=== PATIENT | male | born 1930 | race Caucasian/White ===

== ENCOUNTER → 2016-06-07 | Outpatient (CLI) | payer OTHER ==
[~2016-06-07] MED LIST: ALENDRONATE SOD70 MG PO; AMBIEN10 MG PO; AUGMENTIN 875-1 EACH PO; BRINTELLIX5 MG PO; CILOSTAZOL50 MG PO; CIPRO500 MG PO; CLEOCIN HCL300 MG PO; CYANOCOBAL1000 MCG/1 INJ; DIAPER RASH57 GM TP; DULCOLAX10 MG PR; ENULOSE10 GM/15 M PO; IBANDRONATE SO150 MG PO; LEVAQUIN750 MG PO; LINZESS145 MCG PO; LORCET HD 10-31 EACH PO; MIRALAX17 GM PO; MULTIVITAMINS1 EAC1 PO; NEURONTIN 300300 MG PO; PRESERVISION A1 EAC2 PO; PROSCAR5 MG PO; PROTONIX40 MG PO; SENNA8.6 MG PO; TRINTELLIX PO; VITAMIN C 500500 MG PO; VITAMIN D 11000 UNIT PO
[2016-06-07 13:52] LABS: HEMOGLOBIN 14.5 gm/dl (14.0-17.5); RED BLOOD COUNT 4.48 M/UL (4.20-5.50)
[2016-06-07 14:17] LABS: BUN/CREATININE RATIO 30 (0-10)
== END ==
LOC: OPSV 11:47 → LAB 11:47
PROVIDERS: Emergency Medicine
DX: E78.2 Mixed hyperlipidemia (principal); G47.09 Other insomnia; G89.4 Chronic pain syndrome; I10 Essential (primary) hypertension; I70.361 Atherosclerosis of unspecified type of bypass graft(s) of the extremities with gangrene, right leg; I73.89 Other specified peripheral vascular diseases; K21.9 Gastro-esophageal reflux disease without esophagitis; J43.9 Emphysema, unspecified; L03.031 Cellulitis of right toe; M51.36 Other intervertebral disc degeneration, lumbar region; N18.3 Chronic kidney disease, stage 3 (moderate)
CPT/HCPCS: 36415; 71020; 80053; 85027; 93005

== ENCOUNTER → 2016-06-08 | Outpatient (CLI) | payer OTHER | LOC: CT 14:51 | DX: R00.0 Tachycardia, unspecified (principal); R79.89 Other specified abnormal findings of blood chemistry; Z79.82 Long term (current) use of aspirin; Z79.899 Other long term (current) drug therapy; J84.9 Interstitial pulmonary disease, unspecified | CPT/HCPCS: J7050; Q9963 ==

== ENCOUNTER → 2016-06-08 | Outpatient (CLI) | payer OTHER | LOC: LAB 10:32 | DX: E78.2 Mixed hyperlipidemia (principal); G47.09 Other insomnia; G89.4 Chronic pain syndrome; I10 Essential (primary) hypertension; I73.89 Other specified peripheral vascular diseases; K21.9 Gastro-esophageal reflux disease without esophagitis; L03.031 Cellulitis of right toe; M51.36 Other intervertebral disc degeneration, lumbar region; M79.674 Pain in right toe(s); M80.08XD Age-related osteoporosis with current pathological fracture, vertebra(e), subsequent encounter for fracture with routine healing; N18.2 Chronic kidney disease, stage 2 (mild); N18.3 Chronic kidney disease, stage 3 (moderate); N30.01 Acute cystitis with hematuria; R00.0 Tachycardia, unspecified; R10.32 Left lower quadrant pain; R25.2 Cramp and spasm; R31.0 Gross hematuria; R60.0 Localized edema | CPT/HCPCS: 36592; 85379 ==

== ENCOUNTER → 2016-06-13 | Outpatient (CLI) | payer OTHER | LOC: OPSV 13:00 | DX: M86.9 Osteomyelitis, unspecified (principal); S91.301A Unspecified open wound, right foot, initial encounter; R94.4 Abnormal results of kidney function studies | CPT/HCPCS: G0463 ==

== ENCOUNTER → 2016-06-14 | Outpatient (CLI) | payer OTHER ==
[2016-06-14 10:56] LABS: BUN/CREATININE RATIO 21 (0-10)
== END ==
LOC: LAB 10:04
PROVIDERS: Emergency Medicine
DX: I12.9 Hypertensive chronic kidney disease with stage 1 through stage 4 chronic kidney disease, or unspecified chronic kidney disease (principal); N18.3 Chronic kidney disease, stage 3 (moderate); E78.2 Mixed hyperlipidemia; G47.09 Other insomnia; G89.4 Chronic pain syndrome; I70.361 Atherosclerosis of unspecified type of bypass graft(s) of the extremities with gangrene, right leg; I73.89 Other specified peripheral vascular diseases; K21.9 Gastro-esophageal reflux disease without esophagitis; L03.031 Cellulitis of right toe; M51.36 Other intervertebral disc degeneration, lumbar region; M54.5 Low back pain; M79.674 Pain in right toe(s); N30.01 Acute cystitis with hematuria; R10.32 Left lower quadrant pain; R31.0 Gross hematuria; R60.0 Localized edema
CPT/HCPCS: 36592; 80048; 80053; 80074

== ENCOUNTER → 2016-06-15 | Outpatient (CLI) | payer OTHER | LOC: KOH-I 11:00 | DX: R74.0 Nonspecific elevation of levels of transaminase and lactic acid dehydrogenase [LDH] (principal); K80.20 Calculus of gallbladder without cholecystitis without obstruction | CPT/HCPCS: 76705 ==

== ENCOUNTER 2016-07-21 12:17 | Inpatient (IN) | payer OTHER ==
[~2016-07-21] VITALS: Ht 177.8 cm; Wt 83.9 kg
[2016-07-21] MEDS ORDERED: CYANOCOBAL1000 MCG/1 INJ (14:54)
[2016-07-21] MEDS ORDERED: LORCET HD 10-31 EACH PO (14:54)
[2016-07-21] MEDS ORDERED: CILOSTAZOL50 MG PO (14:55)
[2016-07-21] MEDS ORDERED: LEVAQUIN750 MG PO (14:55)
[2016-07-21] MEDS ORDERED: SENNA8.6 MG PO (14:57)
[2016-07-21] MEDS ORDERED: ALENDRONATE SOD70 MG PO (14:57)
[2016-07-21] MEDS ORDERED: NEURONTIN 300300 MG PO (14:57)
[2016-07-21] MEDS ORDERED: AUGMENTIN 875-1 EACH PO (14:57)
[2016-07-21] MEDS ORDERED: PROSCAR5 MG PO (14:57)
[2016-07-21] MEDS ORDERED: PROTONIX40 MG PO (14:58)
[2016-07-21] MEDS ORDERED: VITAMIN D 11000 UNIT PO (14:59)
[2016-07-21] MEDS ORDERED: AMBIEN10 MG PO (14:59)
[2016-07-21] MEDS ORDERED: BRINTELLIX5 MG PO (15:01)
[2016-07-21] MEDS ORDERED: PRESERVISION A1 EAC2 PO (15:01)
[2016-07-21 17:11] LABS: BUN/CREATININE RATIO 14 (0-10)
[2016-07-21 17:12] LABS: HEMOGLOBIN 14.3 gm/dl (14.0-17.5); RED BLOOD COUNT 4.31 M/UL (4.20-5.50); WHITE BLOOD COUNT 7.7 K/UL (4.5-11.0)
[2016-07-22 05:13] LABS: HEMOGLOBIN 13.1 gm/dl (14.0-17.5); RED BLOOD COUNT 3.95 M/UL (4.20-5.50); WHITE BLOOD COUNT 7.2 K/UL (4.5-11.0)
[2016-07-22 05:33] LABS: BUN/CREATININE RATIO 19 (0-10)
[2016-07-23 04:37] LABS: HEMOGLOBIN 13.3 gm/dl (14.0-17.5); RED BLOOD COUNT 4.06 M/UL (4.20-5.50); WHITE BLOOD COUNT 7.9 K/UL (4.5-11.0)
[2016-07-23 04:56] LABS: BUN/CREATININE RATIO 18 (0-10)
[2016-07-24 06:50] LABS: HEMOGLOBIN 13.2 gm/dl (14.0-17.5); RED BLOOD COUNT 4.07 M/UL (4.20-5.50); WHITE BLOOD COUNT 6.1 K/UL (4.5-11.0)
[2016-07-24 07:04] LABS: BUN/CREATININE RATIO 22 (0-10)
[2016-07-25 06:19] LABS: HEMOGLOBIN 14.7 gm/dl (14.0-17.5); RED BLOOD COUNT 4.47 M/UL (4.20-5.50)
[2016-07-25 06:20] LABS: WHITE BLOOD COUNT 8.1 K/UL (4.5-11.0)
[2016-07-25 06:40] LABS: BUN/CREATININE RATIO 15 (0-10)
[2016-07-28 04:44] LABS: HEMOGLOBIN 13.5 gm/dl (14.0-17.5); RED BLOOD COUNT 4.17 M/UL (4.20-5.50); WHITE BLOOD COUNT 7.3 K/UL (4.5-11.0)
[2016-07-28 05:26] LABS: BUN/CREATININE RATIO 22 (0-10)
[2016-07-30 05:25] LABS: RED BLOOD COUNT 4.27 M/UL (4.20-5.50)
[2016-07-30 05:53] LABS: BUN/CREATININE RATIO 18 (0-10)
[2016-07-31 05:02] LABS: HEMOGLOBIN 13.8 gm/dl (14.0-17.5); RED BLOOD COUNT 4.24 M/UL (4.20-5.50); WHITE BLOOD COUNT 8.2 K/UL (4.5-11.0)
[2016-07-31 05:22] LABS: BUN/CREATININE RATIO 23 (0-10)
[2016-08-01 09:30] LABS: BUN/CREATININE RATIO 20 (0-10)
[2016-08-02 04:42] LABS: HEMOGLOBIN 13.2 gm/dl (14.0-17.5); RED BLOOD COUNT 4.02 M/UL (4.20-5.50)
[2016-08-02 04:44] LABS: WHITE BLOOD COUNT 10.5 K/UL (4.5-11.0)
[2016-08-02 05:03] LABS: BUN/CREATININE RATIO 18 (0-10)
[2016-08-03 09:21] LABS: HEMOGLOBIN 14.5 gm/dl (14.0-17.5); RED BLOOD COUNT 4.39 M/UL (4.20-5.50)
[2016-08-03 09:32] LABS: BUN/CREATININE RATIO 22 (0-10)
[2016-08-03 09:38] LABS: WHITE BLOOD COUNT 14.4 K/UL (4.5-11.0)
[2016-08-04 07:41] LABS: BUN/CREATININE RATIO 16 (0-10)
[2016-08-05 05:31] LABS: BUN/CREATININE RATIO 20 (0-10)
[2016-10-06] MEDS ORDERED: CLEOCIN HCL300 MG PO (20:19)
[2016-10-06] MEDS ORDERED: VITAMIN C 500500 MG PO (20:20)
[2016-10-06] MEDS ORDERED: CIPRO500 MG PO (20:20)
[2016-10-06] MEDS ORDERED: BRINTELLIX5 MG PO (20:24)
[2016-11-01] MEDS ORDERED: LINZESS145 MCG PO (19:54)
[2016-11-01] MEDS ORDERED: MIRALAX17 GM PO (19:55)
[2016-11-01] MEDS ORDERED: MULTIVITAMINS1 EAC1 PO (19:56)
[2016-11-01] MEDS ORDERED: ENULOSE10 GM/15 M PO (19:56)
[2016-11-01] MEDS ORDERED: DULCOLAX10 MG PR (19:57)
[2016-11-01] MEDS ORDERED: IBANDRONATE SO150 MG PO (19:59)
[2016-11-01] MEDS ORDERED: DIAPER RASH57 GM TP (20:00)
[2016-11-02] MEDS ORDERED: TRINTELLIX PO (12:48)
== END 2016-08-05 17:32 | DRG 477 ==
LOC: MED SURG 4 12:58
PROVIDERS: Family Medicine; Internal Medicine Infectious Disease; Podiatrist Foot & Ankle Surgery; ADMIT Emergency Medicine
PROC: B41D1ZZ Fluoroscopy of Aorta and Bilateral Lower Extremity Arteries using Low Osmolar Contrast (ICD-10-PCS; 2016-07-22)
PROC: 0Y6P0Z1 Detachment at Right 1st Toe, High, Open Approach (ICD-10-PCS; 2016-07-23)
PROC: 0JRQ0KZ Replacement of Right Foot Subcutaneous Tissue and Fascia with Nonautologous Tissue Substitute, Open Approach (ICD-10-PCS; 2016-07-23)
PROC: 0QBQ0ZZ Excision of Right Toe Phalanx, Open Approach (ICD-10-PCS; 2016-07-23)
PROC: 0QBQ0ZZ Excision of Right Toe Phalanx, Open Approach (ICD-10-PCS; 2016-07-23)
PROC: 0QBQ0ZX Excision of Right Toe Phalanx, Open Approach, Diagnostic (ICD-10-PCS; principal; 2016-07-23 09:45)
DX: M86.671 Other chronic osteomyelitis, right ankle and foot (principal); G92 Toxic encephalopathy; I70.3 Atherosclerosis of unspecified type of bypass graft(s) of the extremities; L97.419 Non-pressure chronic ulcer of right heel and midfoot with unspecified severity; I70.92 Chronic total occlusion of artery of the extremities; J98.11 Atelectasis; L03.031 Cellulitis of right toe; B95.7 Other staphylococcus as the cause of diseases classified elsewhere; I12.9 Hypertensive chronic kidney disease with stage 1 through stage 4 chronic kidney disease, or unspecified chronic kidney disease; N18.3 Chronic kidney disease, stage 3 (moderate); I25.10 Atherosclerotic heart disease of native coronary artery without angina pectoris; D64.9 Anemia, unspecified; R07.9 Chest pain, unspecified; E78.5 Hyperlipidemia, unspecified; T40.2X5A Adverse effect of other opioids, initial encounter; T42.6X5A Adverse effect of other antiepileptic and sedative-hypnotic drugs, initial encounter; M80.08XD Age-related osteoporosis with current pathological fracture, vertebra(e), subsequent encounter for fracture with routine healing; I45.10 Unspecified right bundle-branch block; K80.20 Calculus of gallbladder without cholecystitis without obstruction; E55.9 Vitamin D deficiency, unspecified; K21.9 Gastro-esophageal reflux disease without esophagitis; H35.30 Unspecified macular degeneration; G89.4 Chronic pain syndrome; N28.1 Cyst of kidney, acquired; G47.00 Insomnia, unspecified; F41.9 Anxiety disorder, unspecified; Z87.891 Personal history of nicotine dependence; Z72.3 Lack of physical exercise; Z79.891 Long term (current) use of opiate analgesic; Z79.899 Other long term (current) drug therapy; Z98.890 Other specified postprocedural states; Z80.6 Family history of leukemia; Z82.49 Family history of ischemic heart disease and other diseases of the circulatory system
CPT/HCPCS: ECHO; 36200; 36415; 71010; 73630; 73718; 75630; 80048; 80053; 80202; 82550; 82553; 84484; 85025; 85027; 86140; 87070; 87077; 87186; 87205; 93005; 93306; J1335; J1644; J2250; J2270; J2795; J3010; J3370; J7030; J7050; J7070; J7120; Q4133; Q9965

== ENCOUNTER → 2016-09-13 | Outpatient (CLI) | payer OTHER | LOC: KOH-I 16:15 | DX: M86.171 Other acute osteomyelitis, right ankle and foot (principal); R93.7 Abnormal findings on diagnostic imaging of other parts of musculoskeletal system; M79.89 Other specified soft tissue disorders | CPT/HCPCS: 73718 ==